=== PATIENT | male | born 1935 | race Caucasian/White ===

== ENCOUNTER 2018-03-07 07:28 | Day surgery (SDC) | payer MEDICARE, OTHER ==
[~2018-03-07 07:28] MED LIST: FENTANYL 100MCG/2ML SOL ONE; MIDAZOLAM 2 MG/2 ML SOL ONE
[2018-03-07] MEDS ORDERED: ACETAZOLAMIDE 250 MG PO ONE (07:36)
[2018-03-07 07:49] VITALS: RESP 18
[2018-03-07] MEDS: TETRACAINE HCL 0.5 % 1 DROP SOL ONE ×3 (07:50→08:55)
[2018-03-07] MEDS: CYCLOPENTOLATE 1% SOL ONE ×2 (07:51→08:04)
[2018-03-07] MEDS: KETOROLAC 0.5% OPTH 60 DROP SOL ONE ×2 (07:51→08:04)
[2018-03-07] MEDS: PHENYLEPHRINE HCL 10% OPHTHAL SOL ONE ×2 (07:51→08:03)
[2018-03-07] MEDS ORDERED: LIDOCAINE HCL 1% MPF 30 SOL ONE (08:50)
[2018-03-07] MEDS ORDERED: POVIDONE IODINE 5% SOL ONE (08:50)
[2018-03-07] MEDS ORDERED: IMPRIMIS ONE (08:50)
[2018-03-07] MEDS ORDERED: BSS 500 ML 500 ML IR ONE (08:50)
[2018-03-07 09:21] VITALS: BP 125/78; PULSE 61; TEMP 97.4; O2SAT 95
== END 2018-03-07 09:47 | disposition home or self-care (01) | DRG 125 ==
LOC: SURG 07:28
PROVIDERS: ATTEND Ophthalmology
DX: H25.89 Other age-related cataract (principal)
CPT/HCPCS: J2250; J3010; A9270-GY; J2001